=== PATIENT | male | born 1995 | race Caucasian/White ===

== ENCOUNTER → 2017-06-04 13:37 | Outpatient (CLI) | payer MEDICAID | END | disposition home or self-care (01) | LOC: D.MRI 13:30 | DX: G47.13 Recurrent hypersomnia (principal) ==

== ENCOUNTER 2021-03-15 13:46 | Emergency (ER) | payer BC ==
[~2021-03-15] VITALS: Ht 162.6 cm; Wt 68.6 kg
[2021-03-15 13:55] VITALS: BP 115/67; Ht 162.6 cm; Wt 68.6 kg
[2021-03-15] MEDS ORDERED: ADDERALL (13:56)
[2021-03-15 14:28] LABS: BASOPHILS 1.1 % (0-2); HEMATOCRIT 44.1 % (42.0-54.0); LYMPHOCYTES 33.2 % (15-50); MCH 29.8 pg (26.0-34.0); MCHC 33.9 g/dL (31.0-37.0); MEAN PLATELET VOLUME 7.7 fL (7.4-10.4); MONOCYTES 6.7 % (2-11); PLATELET COUNT 280 10x3/uL (130-400); RBC 5.01 10x6/uL (4.20-6.10); RDW 13.6 % (11.5-14.5); WBC 9.7 10x3/uL (4.8-10.8)
[2021-03-15 14:35] LABS: CALC OSMOLALITY 282 mosm/kg (275-300); CALCIUM 8.5 mg/dL (8.5-10.1); CARBON DIOXIDE 27.9 mmol/L (21.0-32.0); CHLORIDE - SERUM 106 mmol/L (98-107); CREATININE - SERUM 0.9 mg/dL (0.6-1.3); GLUCOSE 96 mg/dL (74-106); POTASSIUM - SERUM 3.8 mmol/L (3.5-5.1); SODIUM 142 mmol/L (136-145); UREA NITROGEN 13 mg/dL (7-18); eGFR NON AFRICAN AMERICAN > 90 mL/min (90-120)
[2021-03-15 14:42] LABS: ALKALINE PHOSPHATASE 44 U/L (30-120); ALT (SGPT) 22 U/L (10-68); LIPASE 50 U/L (73-393); PROTEIN - SERUM 7.3 g/dL (6.4-8.2)
[2021-03-15 15:59] LABS: BILIRUBIN NEGATIVE (NEGATIVE); KETONE NEGATIVE (NEGATIVE); NITRITE NEGATIVE (NEGATIVE); UROBILINOGEN NORMAL mg/dL (< 2)
== END 2021-03-15 16:38 | disposition home or self-care (01) ==
LOC: D.ER 13:46
PROVIDERS: Student in an Organized Health Care Education/Training Program
DX: R10.9 Unspecified abdominal pain (principal); R18.8 Other ascites